=== PATIENT | male | born 1960 | race Caucasian/White ===

== ENCOUNTER → 2021-02-24 | Day surgery (SDC) | payer BC | LOC: MSO 07:43 | DX: K22.70 Barrett's esophagus without dysplasia (principal); K21.9 Gastro-esophageal reflux disease without esophagitis; K44.9 Diaphragmatic hernia without obstruction or gangrene; I10 Essential (primary) hypertension; G47.33 Obstructive sleep apnea (adult) (pediatric); Z85.51 Personal history of malignant neoplasm of bladder; Z86.010 Personal history of colon polyps; Z85.828 Personal history of other malignant neoplasm of skin; Z79.899 Other long term (current) drug therapy | CPT/HCPCS: 00731; J2704; J7120 ==

== ENCOUNTER → 2023-06-20 | Day surgery (SDC) | payer MEDICARE, BC ==
[~2023-06-20] MED LIST: Apraclonidine 1% Ophth Soln 0.1 ML BOTTLE OP SCH; Balanced Salt Ophth Irrig 15 ML BOTTLE *BULK OP SCH; Phenylephrine 10% Ophth Soln 5 ML BOTTLE *BULK OP SCH; Proparacaine 0.5% Ophth Soln 15 ML BOTTLE *BULK OP SCH; Tropicamide 1% Ophth Soln Bottle *BULK OP SCH
== END | disposition home or self-care (01) ==
LOC: MSO 09:50
DX: H26.491 Other secondary cataract, right eye (principal); C67.9 Malignant neoplasm of bladder, unspecified; Z96.1 Presence of intraocular lens